=== PATIENT | female | born 1970 | race Caucasian/White ===

== ENCOUNTER 2018-10-16 10:54 | Day surgery (SDC) | payer MEDICARE, MEDICAID ==
[2018-10-15 15:55] VITALS: BMI 72.1
[~2018-10-16 10:54] MED LIST: Lidocaine 1% PF 5 ML VIAL ONE; PROPOFOL 200 MG/20 ML VIAL ONE
--- NOTE | 2018-10-16 13:52 | OP ---
DATE OF PROCEDURE: 10/16/2018 SURGEON: Felisa Gayle M.D. OPERATIVE PROCEDURE: Esophagogastroduodenoscopy. PREOPERATIVE DIAGNOSES: Iron deficient anemia with recent drop in blood count. There is no history of overt gastrointestinal bleeding. POSTOPERATIVE DIAGNOSES: 1. Normal esophagus and duodenum. 2. Antral gastritis. PROCEDURE IN DETAIL: The patient was placed on her left lateral position and the throat was anesthet ized with Cetacaine spray and the patient given sedation by Anesthesia Department. A [employer]ax video ga stroscope under direct vision was passed down the oropharynx, past the GE junction, into the stomach and subsequently descending duodenum. The esophageal mucosa appeared normal. The GE junction, no pa thology seen. Retroflexion failed to show any lesion in the fundus or cardia. The gastric body, no pathology seen. The gastric antrum shows edematous mucosa. The duodenal bulb and descending duodenu m, no pathology seen. The stomach was decompressed and scope was removed. RECOMMENDATIONS: 1. Iron supplement. 2. Follow up H&H. 3. No further workup necessary as she had a colonoscopy in 2017 that was completely normal.
== END 2018-10-16 17:00 | disposition home or self-care (01) ==
LOC: SDC 10:54
PROVIDERS: ATTEND Internal Medicine Gastroenterology
PROC: 0DJ08ZZ Inspection of Upper Intestinal Tract, Via Natural or Artificial Opening Endoscopic (ICD-10-PCS; principal; 2018-10-16)
DX: D50.9 Iron deficiency anemia, unspecified (principal); K29.70 Gastritis, unspecified, without bleeding; I48.2 Chronic atrial fibrillation; E11.9 Type 2 diabetes mellitus without complications; E03.9 Hypothyroidism, unspecified; G89.4 Chronic pain syndrome; D68.9 Coagulation defect, unspecified; F17.200 Nicotine dependence, unspecified, uncomplicated; E66.01 Morbid (severe) obesity due to excess calories; Z68.45 Body mass index [BMI] 70 or greater, adult; Z86.718 Personal history of other venous thrombosis and embolism; Z79.01 Long term (current) use of anticoagulants; Z79.899 Other long term (current) drug therapy
CPT/HCPCS: J2001; J2704

== ENCOUNTER 2020-03-12 13:10 | Emergency (ER) | payer MEDICARE, MEDICAID ==
[2020-03-12 14:04] LABS: #Basophils 0.1 thou/uL (0.0-0.2); #Eosinphils 0.2 thou/uL (0.0-0.7); #Lymphocytes 1.9 thou/uL (1.20-3.40); #Monocytes 0.7 thou/uL (0.11-0.59); #Neutrophils 5.3 thou/uL (1.40-6.50); %Basophils 0.7 % (0.0-1.0); %Eosinophils 2.5 % (0.0-10.0); %Lymphocytes 22.9 % (21.0-51.0); %Neutrophils 64.9 % (42.0-75.0); Hemoglobin 13.1 g/dL (12.0-16.0); Mean Corpuscular HGB CONC 31.1 g/dL (32.0-36.0); Mean Corpuscular Hemoglobin 24.9 pg (27.0-31.0); Mean Platelet Volume 10.2 fL (7.4-10.4); Platelet Count 229 thou/uL (130-400); RBC Distribution Width 15.3 % (11.5-14.5); Red Blood Cell (RBC) Count 5.27 mill/uL (4.20-5.40); White Blood Cell (WBC) Count 8.1 thou/uL (4.8-10.8)
[2020-03-12 14:19] LABS: ALT (SGPT) 34 U/L (8-55); AST (SGOT) 28 U/L (5-34); Albumin 3.8 g/dL (3.5-5.0); Alkaline Phosphatase 135 U/L (40-110); Anion Gap 11 mmol/L (10-20); BUN (Urea Nitrogen) 13 mg/dL (7.0-18.7); Bilirubin, Total 0.3 mg/dL (0.2-1.2); Calc. Creatinine Clearance 0 mL/min (70-130); Carbon Dioxide 27 mmol/L (22-29); Chloride 101 mmol/L (98-107); Estimated GFR-MDRD 65; Globulin 4.2 g/dL (2.4-3.5); Glucose 103 mg/dL (70-105); Potassium 4.2 mmol/L (3.5-5.1); Sodium 135 mmol/L (136-145)
--- NOTE | 2020-03-12 14:38 | RAD ---
RIGHT TIBIA AND FIBULA 2 VIEWS: Date: 03/12/2020 HISTORY: Redness and oozing from leg. COMPARISON: 12/31/2019. FINDINGS: Focal prominent soft tissue swelling noted primarily laterally at the proximal calf with what appears to be a fairly large anterolateral open wound. There was some focal soft tissue swelling in this reg ion at the time of the prior study, but no open wound was seen at that time. Postop changes of the an kle with ankle joint and subtalar joint fusion changes. No fracture, dislocation, or other significan t acute osseous process. IMPRESSION: Open wound anteriorly and laterally at the upper calf. Postoperative ankle and subtalar joint fusion changes. No acute fracture or dislocation. POS: [facility]
== END 2020-03-12 16:58 | disposition home or self-care (01) ==
LOC: ERS 13:10
DX: S81.801A Unspecified open wound, right lower leg, initial encounter (principal); I50.9 Heart failure, unspecified; F41.9 Anxiety disorder, unspecified; F32.9 Major depressive disorder, single episode, unspecified; Z87.891 Personal history of nicotine dependence; Z79.82 Long term (current) use of aspirin; Z79.899 Other long term (current) drug therapy
CPT/HCPCS: 36415; 80053; 85025; 85652; 86140; 99284

== ENCOUNTER 2023-07-14 22:30 | Inpatient (IN) | payer MEDICARE, MEDICAID ==
[2023-07-14] MEDS ORDERED: Guaifenesin DM 100-10/5 ML UDCUP PO PRN (23:51)
[2023-07-14] MEDS ORDERED: Ondansetron ODT 4 MG TAB PO PRN (23:51)
[2023-07-14] MEDS ORDERED: Ondansetron PF 4 MG/2 ML Vial IVP PRN (23:51)
[2023-07-14] MEDS ORDERED: Calcium Carbonate 500 MG ChewTAB PO PRN (23:51)
[2023-07-14] MEDS ORDERED: Acetaminophen 650 MG Suppository PR PRN (23:51)
[2023-07-14] MEDS ORDERED: Acetaminophen 325 MG TAB PO PRN (23:51)
[2023-07-15] MEDS ORDERED: cefTRIAXone\\ROCEPHIN 2 GM in Sodium Chloride 0.9% 100 ML IVPB SCH ×2 (01:00→09:00)
[2023-07-15 01:51] LABS: #Basophils 0.1 thou/uL (0.0-0.2); #Eosinphils 1.4 thou/uL (0.0-0.7); #Neutrophils 6.6 thou/uL (1.40-6.50); %Eosinophils 12.7 % (0.0-10.0); %Lymphocytes 18.8 % (21.0-51.0); %Monocytes 9.1 % (0.0-10.0); Hematocrit 42.9 % (36.0-47.0); Hemoglobin 13.1 g/dL (12.0-16.0); Mean Corpuscular HGB CONC 30.5 g/dL (32.0-36.0); Mean Corpuscular Hemoglobin 27.6 pg (27.0-31.0); Mean Corpuscular Volume 90.3 fl (78.0-98.0); Platelet Count 242 10x3/uL (130-400); RBC Distribution Width 14.2 % (11.5-14.5); Red Blood Cell (RBC) Count 4.75 mill/uL (4.20-5.40); White Blood Cell (WBC) Count 11.4 10x3/uL (4.8-10.8)
[2023-07-15] MEDS ORDERED: guaiFENesin ER 600 MG TAB PO PRN (02:37)
[2023-07-15] MEDS ORDERED: Nystatin Powder 15 GM BOT TOP PRN (02:37)
[2023-07-15] MEDS ORDERED: MENTHOL TOP PRN (02:37)
[2023-07-15] MEDS ORDERED: DEXTROMETHORPHAN PO PRN (02:37)
[2023-07-15] MEDS ORDERED: Polyethylene Glycol 3350 17 GM Packet PO PRN (02:37)
[2023-07-15] MEDS ORDERED: Milk Of Magnesia 30 ML UDCUP PO PRN ×2 (02:37)
[2023-07-15] MEDS ORDERED: Docusate 100 MG CAP PO PRN (02:37)
[2023-07-15] MEDS ORDERED: GUAIFENESIN PO PRN (02:37)
[2023-07-15] MEDS ORDERED: Phenol 118 ML BOT PO PRN (02:37)
[2023-07-15] MEDS ORDERED: [UNRECOGNIZED DRUG - OTHER] PO PRN (02:37)
[2023-07-15] MEDS ORDERED: Promethazine 25 MG TAB PO PRN (02:37)
[2023-07-15] MEDS ORDERED: Witch Hazel-Glycerin 1 EACH JAR TOP PRN (03:03)
[2023-07-15] MEDS ORDERED: diphenhydrAMINE 50 MG CAP PO PRN (03:08)
[2023-07-15] MEDS ORDERED: Ibuprofen 600 MG TAB PO PRN (03:14)
[2023-07-15 03:31] VITALS: BMI 67.6
[2023-07-15] MEDS: Levothyroxine Sodium 50 MCG TAB PO SCH (06:57)
[2023-07-15] MEDS: Acetaminophen 500 MG TAB PO PRN ×2 (06:57→17:01)
[2023-07-15 07:18] LABS: Anion Gap 14 mmol/L (10-20); BUN (Urea Nitrogen) 12 mg/dL (9.8-20.1); Calc. Creatinine Clearance 263 mL/min (70-130); Carbon Dioxide 22 mmol/L (22-29); Chloride 103 mmol/L (98-107); Estimated GFR 80; Glucose 95 mg/dL (70-105); Potassium 3.7 mmol/L (3.5-5.1); Sodium 135 mmol/L (136-145)
[2023-07-15] MEDS: Potassium Chloride 8 MEQ TAB PO SCH ×2 (09:05→19:52)
[2023-07-15] MEDS: Aripiprazole 15 MG TAB PO SCH (09:05)
[2023-07-15] MEDS: Ferrous Sulfate 325 MG TAB PO SCH (09:05)
[2023-07-15] MEDS: Furosemide 20 MG TAB PO SCH (09:06)
[2023-07-15] MEDS: Topiramate 25 MG TAB PO SCH ×2 (09:06→19:52)
[2023-07-15] MEDS: FLUoxetine HCl 20 MG CAP PO SCH (09:06)
[2023-07-15] MEDS: Bupropion 100 MG SR TAB PO SCH (09:06)
[2023-07-15] MEDS: Aspirin 81 mg Enteric Coated Tablet PO SCH (09:07)
[2023-07-15] MEDS: clonazePAM 0.5 MG TAB PO SCH ×2 (09:07→19:52)
[2023-07-15] MEDS: Pioglitazone HCl 15 MG TAB PO SCH (09:07)
[2023-07-15] MEDS: Multivit, Therapeutic 1 TAB PO SCH (09:07)
[2023-07-15] MEDS ORDERED: Vancomycin HCl 2.5 GM in Sodium Chloride 0.9% 500 ML IVPB SCH (10:45)
[2023-07-15] MEDS: Ampicillin/Sulbactam 3 GM in Sodium Chloride 0.9% 100 ML IVPB SCH ×2 (11:26→17:01)
[2023-07-15] MEDS ORDERED: Clindamycin/D5W 600 MG in Premix Bag 1 BAG IVPB SCH (14:00)
[2023-07-15] MEDS: Melatonin 3 MG TAB PO SCH (19:52)
[2023-07-15] MEDS: VANCOMYCIN 1.25 GM/250 ML BAG 1.25 GM in Premix Bag 1 BAG IVPB SCH (19:53)
[2023-07-15] MEDS: Ibuprofen 600 MG TAB PO PRN (20:03)
[2023-07-16] MEDS: Ampicillin/Sulbactam 3 GM in Sodium Chloride 0.9% 100 ML IVPB SCH ×4 (00:41→17:53)
[2023-07-16] MEDS: Acetaminophen 500 MG TAB PO PRN ×2 (05:20→12:48)
[2023-07-16] MEDS: Levothyroxine Sodium 50 MCG TAB PO SCH (05:20)
[2023-07-16] MEDS: Ibuprofen 600 MG TAB PO PRN ×2 (05:21→12:48)
[2023-07-16] MEDS: VANCOMYCIN 1.25 GM/250 ML BAG 1.25 GM in Premix Bag 1 BAG IVPB SCH ×2 (05:21→15:24)
[2023-07-16] MEDS: Bupropion 100 MG SR TAB PO SCH (08:38)
[2023-07-16] MEDS: Multivit, Therapeutic 1 TAB PO SCH (08:39)
[2023-07-16] MEDS: Aripiprazole 15 MG TAB PO SCH (08:39)
[2023-07-16] MEDS: Pioglitazone HCl 15 MG TAB PO SCH (08:39)
[2023-07-16] MEDS: Ferrous Sulfate 325 MG TAB PO SCH (08:39)
[2023-07-16] MEDS: FLUoxetine HCl 20 MG CAP PO SCH (08:39)
[2023-07-16] MEDS: clonazePAM 0.5 MG TAB PO SCH ×2 (08:39→21:01)
[2023-07-16] MEDS: Aspirin 81 mg Enteric Coated Tablet PO SCH (08:39)
[2023-07-16] MEDS: Furosemide 20 MG TAB PO SCH (08:39)
[2023-07-16] MEDS: Potassium Chloride 8 MEQ TAB PO SCH ×2 (08:39→21:01)
[2023-07-16] MEDS: Topiramate 25 MG TAB PO SCH ×2 (08:39→21:01)
[2023-07-16 08:51] LABS: #Basophils 0.1 thou/uL (0.0-0.2); #Eosinphils 1.4 thou/uL (0.0-0.7); #Monocytes 0.7 thou/uL (0.11-0.59); #Neutrophils 3.7 thou/uL (1.40-6.50); %Basophils 0.8 % (0.0-1.0); %Eosinophils 18.6 % (0.0-10.0); %Lymphocytes 21.9 % (21.0-51.0); %Monocytes 9.5 % (0.0-10.0); %Neutrophils 48.8 % (42.0-75.0); Hematocrit 44.5 % (36.0-47.0); Hemoglobin 12.8 g/dL (12.0-16.0); Mean Corpuscular HGB CONC 28.8 g/dL (32.0-36.0); Mean Corpuscular Hemoglobin 27.6 pg (27.0-31.0); Mean Corpuscular Volume 95.9 fl (78.0-98.0); Mean Platelet Volume 10.9 fL (7.4-10.4); Platelet Count 234 10x3/uL (130-400); RBC Distribution Width 14.6 % (11.5-14.5); Red Blood Cell (RBC) Count 4.64 mill/uL (4.20-5.40); White Blood Cell (WBC) Count 7.6 10x3/uL (4.8-10.8)
[2023-07-16 14:10] LABS: Vancomycin, Trough 24.2 ug/mL
[2023-07-16] MEDS: Melatonin 3 MG TAB PO SCH (21:00)
[2023-07-16] MEDS: Vancomycin 1 GM in Premix Bag 1 BAG IVPB SCH (21:01)
[2023-07-17] MEDS: Ampicillin/Sulbactam 3 GM in Sodium Chloride 0.9% 100 ML IVPB SCH ×4 (00:38→20:34)
[2023-07-17] MEDS ORDERED: Loperamide HCl 2 MG CAP PO SCH (03:32)
[2023-07-17] MEDS: Levothyroxine Sodium 50 MCG TAB PO SCH (05:02)
[2023-07-17] MEDS: Ibuprofen 600 MG TAB PO PRN ×2 (05:03→21:44)
[2023-07-17 06:12] LABS: #Basophils 0.1 thou/uL (0.0-0.2); #Eosinphils 1.8 thou/uL (0.0-0.7); #Monocytes 0.9 thou/uL (0.11-0.59); #Neutrophils 4.5 thou/uL (1.40-6.50); %Eosinophils 19.2 % (0.0-10.0); %Lymphocytes 22.6 % (21.0-51.0); %Monocytes 9.1 % (0.0-10.0); %Neutrophils 47.8 % (42.0-75.0); Hematocrit 44.9 % (36.0-47.0); Hemoglobin 13.2 g/dL (12.0-16.0); Mean Corpuscular HGB CONC 29.4 g/dL (32.0-36.0); Mean Corpuscular Hemoglobin 27.9 pg (27.0-31.0); Mean Corpuscular Volume 94.9 fl (78.0-98.0); Mean Platelet Volume 11.2 fL (7.4-10.4); Platelet Count 249 10x3/uL (130-400); RBC Distribution Width 14.4 % (11.5-14.5); Red Blood Cell (RBC) Count 4.73 mill/uL (4.20-5.40); White Blood Cell (WBC) Count 9.4 10x3/uL (4.8-10.8)
[2023-07-17] MEDS: Vancomycin 1 GM in Premix Bag 1 BAG IVPB SCH ×3 (06:14→18:32)
[2023-07-17] MEDS: Bupropion 100 MG SR TAB PO SCH (08:34)
[2023-07-17] MEDS: Pioglitazone HCl 15 MG TAB PO SCH (08:34)
[2023-07-17] MEDS: Aripiprazole 15 MG TAB PO SCH (08:34)
[2023-07-17] MEDS: Potassium Chloride 8 MEQ TAB PO SCH ×2 (08:35→21:36)
[2023-07-17] MEDS: clonazePAM 0.5 MG TAB PO SCH ×2 (08:35→21:36)
[2023-07-17] MEDS: Topiramate 25 MG TAB PO SCH ×2 (08:35→21:37)
[2023-07-17] MEDS: FLUoxetine HCl 20 MG CAP PO SCH (08:35)
[2023-07-17] MEDS: Aspirin 81 mg Enteric Coated Tablet PO SCH (08:36)
[2023-07-17] MEDS: Multivit, Therapeutic 1 TAB PO SCH (08:36)
[2023-07-17] MEDS: Ferrous Sulfate 325 MG TAB PO SCH (08:36)
[2023-07-17] MEDS: Furosemide 20 MG TAB PO SCH (08:37)
[2023-07-17 14:50] LABS: Vancomycin, Trough 18.6 ug/mL
[2023-07-17] MEDS: cefTRIAXone\\ROCEPHIN 2 GM in Sodium Chloride 0.9% 100 ML IVPB SCH (21:31)
[2023-07-17] MEDS: metroNIDAZOLE 500 MG TAB PO SCH (21:36)
[2023-07-17] MEDS: Melatonin 3 MG TAB PO SCH (21:36)
[2023-07-18] MEDS: Vancomycin 1 GM in Premix Bag 1 BAG IVPB SCH ×2 (00:41→08:48)
[2023-07-18] MEDS: Levothyroxine Sodium 50 MCG TAB PO SCH (05:45)
[2023-07-18 07:05] LABS: Hematocrit 43.3 % (36.0-47.0); Hemoglobin 12.7 g/dL (12.0-16.0); Manual Diff?? YES; Mean Corpuscular HGB CONC 29.3 g/dL (32.0-36.0); Mean Corpuscular Hemoglobin 27.5 pg (27.0-31.0); Mean Corpuscular Volume 93.9 fl (78.0-98.0); Platelet Count 255 10x3/uL (130-400); RBC Distribution Width 14.6 % (11.5-14.5); Red Blood Cell (RBC) Count 4.61 mill/uL (4.20-5.40); White Blood Cell (WBC) Count 6.7 10x3/uL (4.8-10.8)
[2023-07-18 07:07] LABS: Delete Auto Diff?? YES
[2023-07-18 07:56] LABS: Band 3 % (5-11); CellaVision Operator ID LAB.GE; Eosinophils 24 % (0-10); Lymphocytes 30 % (21-51); Monocytes 5 % (0-10); Neutrophil 35 % (42-75); Platelet Adequacy Comment Platelets Normal; Polychromasia SLIGHT = 2-3 cells HPF (0-2); Reactive Lymphocytes 2 % (0-10); Total Cell Count 102
[2023-07-18] MEDS: Bupropion 100 MG SR TAB PO SCH (08:47)
[2023-07-18] MEDS: clonazePAM 0.5 MG TAB PO SCH ×2 (08:47→20:33)
[2023-07-18] MEDS: Potassium Chloride 8 MEQ TAB PO SCH ×2 (08:47→20:47)
[2023-07-18] MEDS: Topiramate 25 MG TAB PO SCH ×2 (08:47→20:33)
[2023-07-18] MEDS: Furosemide 20 MG TAB PO SCH (08:48)
[2023-07-18] MEDS: Ferrous Sulfate 325 MG TAB PO SCH (08:48)
[2023-07-18] MEDS: FLUoxetine HCl 20 MG CAP PO SCH (08:48)
[2023-07-18] MEDS: Pioglitazone HCl 15 MG TAB PO SCH (08:48)
[2023-07-18] MEDS: Multivit, Therapeutic 1 TAB PO SCH (08:48)
[2023-07-18] MEDS: Aripiprazole 15 MG TAB PO SCH (08:48)
[2023-07-18] MEDS: Aspirin 81 mg Enteric Coated Tablet PO SCH (08:48)
[2023-07-18] MEDS: metroNIDAZOLE 500 MG TAB PO SCH ×3 (08:48→20:33)
[2023-07-18] MEDS: Ibuprofen 600 MG TAB PO PRN ×2 (12:58→22:08)
[2023-07-18] MEDS ORDERED: Vancomycin 1 GM in Premix Bag 1 BAG IVPB SCH (16:00)
[2023-07-18] MEDS: Melatonin 3 MG TAB PO SCH (20:32)
[2023-07-18] MEDS: cefTRIAXone\\ROCEPHIN 2 GM in Sodium Chloride 0.9% 100 ML IVPB SCH (21:45)
[2023-07-19] MEDS: Levothyroxine Sodium 50 MCG TAB PO SCH (05:54)
[2023-07-19] MEDS: Ferrous Sulfate 325 MG TAB PO SCH (08:01)
[2023-07-19] MEDS: Aripiprazole 15 MG TAB PO SCH (08:01)
[2023-07-19] MEDS: Pioglitazone HCl 15 MG TAB PO SCH (08:01)
[2023-07-19] MEDS: Furosemide 20 MG TAB PO SCH (08:01)
[2023-07-19] MEDS: clonazePAM 0.5 MG TAB PO SCH (08:01)
[2023-07-19] MEDS: Topiramate 25 MG TAB PO SCH (08:01)
[2023-07-19] MEDS: metroNIDAZOLE 500 MG TAB PO SCH ×2 (08:01→14:01)
[2023-07-19] MEDS: Multivit, Therapeutic 1 TAB PO SCH (08:01)
[2023-07-19] MEDS: Aspirin 81 mg Enteric Coated Tablet PO SCH (08:01)
[2023-07-19] MEDS: FLUoxetine HCl 20 MG CAP PO SCH (08:01)
[2023-07-19] MEDS: Potassium Chloride 8 MEQ TAB PO SCH (08:02)
[2023-07-19] MEDS: Bupropion 100 MG SR TAB PO SCH (08:02)
[2023-07-19] MEDS ORDERED: Cefdinir 300 MG CAP PO SCH (10:00)
[2023-07-19 14:13] VITALS: BP 115/72; TEMP 98.2
[2023-07-19] MEDS: Ibuprofen 600 MG TAB PO PRN (15:40)
== END 2023-07-19 16:08 | DRG 394 ==
LOC: SURG B 23:27
PROVIDERS: ADMIT Family Medicine; ATTEND Family Medicine
DX: K62.6 Ulcer of anus and rectum (principal); R78.81 Bacteremia; A63.0 Anogenital (venereal) warts; I11.0 Hypertensive heart disease with heart failure; I50.9 Heart failure, unspecified; E03.9 Hypothyroidism, unspecified; F41.9 Anxiety disorder, unspecified; Z66 Do not resuscitate; F32.A Depression, unspecified; Z90.49 Acquired absence of other specified parts of digestive tract; Z83.3 Family history of diabetes mellitus; Z79.899 Other long term (current) drug therapy; Z79.82 Long term (current) use of aspirin; Z87.891 Personal history of nicotine dependence; D64.9 Anemia, unspecified; Z74.01 Bed confinement status
CPT/HCPCS: 36415; 80048; 80053; 80202; 81001; 82565; 83605; 85025; 85652; 86140; 87040; 87077; 87149; 97139; J0295; J0696; J1650; J2270; J3370; J3370-JW; J3490; J7030; Q0162

== ENCOUNTER 2023-07-22 23:35 | Inpatient (IN) | payer MEDICARE, MEDICAID ==
[2023-07-23 00:42] LABS: #Basophils 0.1 thou/uL (0.0-0.2); #Eosinphils 2.4 thou/uL (0.0-0.7); #Monocytes 0.8 thou/uL (0.11-0.59); #Neutrophils 3.9 thou/uL (1.40-6.50); %Basophils 1.1 % (0.0-1.0); %Eosinophils 24.2 % (0.0-10.0); %Lymphocytes 26.5 % (21.0-51.0); %Monocytes 7.9 % (0.0-10.0); Hematocrit 45.2 % (36.0-47.0); Hemoglobin 13.3 g/dL (12.0-16.0); Mean Corpuscular HGB CONC 29.4 g/dL (32.0-36.0); Mean Corpuscular Hemoglobin 27.7 pg (27.0-31.0); Mean Corpuscular Volume 94.2 fl (78.0-98.0); Mean Platelet Volume 11.1 fL (7.4-10.4); Platelet Count 212 10x3/uL (130-400); RBC Distribution Width 15.3 % (11.5-14.5); White Blood Cell (WBC) Count 9.9 10x3/uL (4.8-10.8)
[2023-07-23 00:55] LABS: INR-International Normal Ratio 1.2; Prothrombin Time 15.6 sec (12.0-14.7)
[2023-07-23 01:07] LABS: ALT (SGPT) 13 U/L (8-55); AST (SGOT) 22 U/L (5-34); Albumin 3.1 g/dL (3.5-5.0); Alkaline Phosphatase 78 U/L (40-110); Anion Gap 10 mmol/L (10-20); BUN (Urea Nitrogen) 10 mg/dL (9.8-20.1); Bilirubin, Total 0.2 mg/dL (0.2-1.2); Calc. Creatinine Clearance 0 mL/min (70-130); Calcium 9.3 mg/dL (7.8-10.44); Carbon Dioxide 26 mmol/L (22-29); Chloride 104 mmol/L (98-107); Estimated GFR 84; Glucose 81 mg/dL (70-105); Potassium 3.8 mmol/L (3.5-5.1); Protein, Total 8.1 g/dL (6.0-8.3); Sodium 136 mmol/L (136-145)
[2023-07-23] MEDS ORDERED: Milk Of Magnesia 30 ML UDCUP PO PRN (03:32)
[2023-07-23] MEDS ORDERED: GUAIFENESIN PO PRN (03:32)
[2023-07-23] MEDS ORDERED: Promethazine 25 MG TAB PO PRN (03:32)
[2023-07-23] MEDS ORDERED: Nystatin Powder 15 GM BOT TOP PRN (03:32)
[2023-07-23] MEDS ORDERED: Witch Hazel-Glycerin 1 EACH JAR TOP PRN (03:32)
[2023-07-23] MEDS ORDERED: Phenol 177 ML BOT PO PRN (03:32)
[2023-07-23] MEDS ORDERED: Docusate 100 MG CAP PO PRN (03:32)
[2023-07-23] MEDS ORDERED: guaiFENesin ER 600 MG TAB PO PRN (03:32)
[2023-07-23] MEDS ORDERED: Acetaminophen 500 MG TAB PO PRN (03:32)
[2023-07-23] MEDS ORDERED: IBUPROFEN 200 MG PO PRN (03:32)
[2023-07-23] MEDS ORDERED: DEXTROMETHORPHAN PO PRN (03:32)
[2023-07-23] MEDS ORDERED: [UNRECOGNIZED DRUG - OTHER] PO PRN (03:32)
[2023-07-23] MEDS ORDERED: Polyethylene Glycol 3350 17 GM Packet PO PRN (03:32)
[2023-07-23] MEDS ORDERED: diphenhydrAMINE 50 MG CAP PO PRN (03:32)
[2023-07-23] MEDS ORDERED: Methyl Salicylate/Menthol 85 GM TUBE TOP PRN (03:32)
[2023-07-23 03:36] VITALS: BMI 66.6
[2023-07-23] MEDS ORDERED: Ondansetron PF 4 MG/2 ML Vial IVP PRN (03:38)
[2023-07-23] MEDS ORDERED: Acetaminophen 650 MG Suppository PR PRN (03:38)
[2023-07-23] MEDS ORDERED: Ondansetron ODT 4 MG TAB PO PRN (03:38)
[2023-07-23] MEDS ORDERED: Calcium Carbonate 500 MG ChewTAB PO PRN (03:38)
[2023-07-23] MEDS ORDERED: Guaifenesin DM 100-10/5 ML UDCUP PO PRN (03:38)
[2023-07-23] MEDS ORDERED: hydrALAZINE 20 MG/ML VIAL SLOW IVP PRN (04:39)
[2023-07-23] MEDS: Ibuprofen 600 MG TAB PO PRN (05:09)
[2023-07-23] MEDS: Levothyroxine Sodium 50 MCG TAB PO SCH (05:09)
[2023-07-23] MEDS: Acetaminophen 325 MG TAB PO PRN ×3 (05:10→21:14)
[2023-07-23 05:18] LABS: Lactic Acid 0.9 mmol/L (0.5-2.2)
[2023-07-23 06:41] LABS: Hemoglobin A1c 5.2 % (4.0-6.0)
[2023-07-23] MEDS ORDERED: Cefdinir 300 MG CAP PO SCH (09:00)
[2023-07-23] MEDS: Multivit, Therapeutic 1 TAB PO SCH (09:41)
[2023-07-23] MEDS: metroNIDAZOLE 500 MG TAB PO SCH ×3 (09:41→21:14)
[2023-07-23] MEDS: FLUoxetine HCl 20 MG CAP PO SCH (09:41)
[2023-07-23] MEDS: Aspirin 81 mg Enteric Coated Tablet PO SCH (09:41)
[2023-07-23] MEDS: Furosemide 20 MG TAB PO SCH (09:41)
[2023-07-23] MEDS: Topiramate 25 MG TAB PO SCH ×2 (09:41→21:14)
[2023-07-23] MEDS: clonazePAM 0.5 MG TAB PO SCH ×3 (09:41→21:15)
[2023-07-23] MEDS: Cefdinir 300 MG CAP PO SCH ×2 (09:42→21:14)
[2023-07-23] MEDS: Aripiprazole 15 MG TAB PO SCH (09:43)
[2023-07-23] MEDS: Pioglitazone HCl 15 MG TAB PO SCH (09:43)
[2023-07-23] MEDS: Potassium Chloride 8 MEQ TAB PO SCH ×2 (09:43→17:07)
[2023-07-23] MEDS: BuPROPion 100 MG SR.TAB PO SCH (09:43)
[2023-07-23] MEDS: Divalproex Sodium 250 MG ER.TAB PO SCH (09:58)
[2023-07-23] MEDS ORDERED: Acetaminophen/Codeine 30-300mg Tablet PO SCH (13:15)
[2023-07-23] MEDS: Melatonin 3 MG TAB PO SCH (21:14)
[2023-07-24] MEDS: Levothyroxine Sodium 50 MCG TAB PO SCH (05:07)
[2023-07-24 09:06] LABS: #Basophils 0.1 thou/uL (0.0-0.2); #Eosinphils 2.5 thou/uL (0.0-0.7); #Monocytes 0.7 thou/uL (0.11-0.59); #Neutrophils 8.1 thou/uL (1.40-6.50); %Basophils 0.7 % (0.0-1.0); %Eosinophils 18.6 % (0.0-10.0); %Lymphocytes 13.9 % (21.0-51.0); %Monocytes 5.5 % (0.0-10.0); %Neutrophils 60.9 % (42.0-75.0); Hematocrit 43.7 % (36.0-47.0); Hemoglobin 12.9 g/dL (12.0-16.0); Mean Corpuscular HGB CONC 29.5 g/dL (32.0-36.0); Mean Corpuscular Hemoglobin 27.7 pg (27.0-31.0); Mean Platelet Volume 11.7 fL (7.4-10.4); Platelet Count 227 10x3/uL (130-400); RBC Distribution Width 15.8 % (11.5-14.5); Red Blood Cell (RBC) Count 4.65 mill/uL (4.20-5.40); White Blood Cell (WBC) Count 13.4 10x3/uL (4.8-10.8)
[2023-07-24] MEDS: FLUoxetine HCl 20 MG CAP PO SCH (09:24)
[2023-07-24] MEDS: metroNIDAZOLE 500 MG TAB PO SCH ×3 (09:24→21:44)
[2023-07-24] MEDS: Multivit, Therapeutic 1 TAB PO SCH (09:24)
[2023-07-24] MEDS: Divalproex Sodium 250 MG ER.TAB PO SCH (09:24)
[2023-07-24] MEDS: Topiramate 25 MG TAB PO SCH ×2 (09:24→21:43)
[2023-07-24] MEDS: Potassium Chloride 8 MEQ TAB PO SCH ×2 (09:24→16:33)
[2023-07-24] MEDS: Cefdinir 300 MG CAP PO SCH ×2 (09:24→21:42)
[2023-07-24] MEDS: Pioglitazone HCl 15 MG TAB PO SCH (09:24)
[2023-07-24] MEDS: Furosemide 20 MG TAB PO SCH (09:24)
[2023-07-24] MEDS: Aripiprazole 15 MG TAB PO SCH (09:24)
[2023-07-24 09:25] LABS: Anion Gap 9 mmol/L (10-20); BUN (Urea Nitrogen) 11 mg/dL (9.8-20.1); Calc. Creatinine Clearance 245 mL/min (70-130); Calcium 9.3 mg/dL (7.8-10.44); Carbon Dioxide 29 mmol/L (22-29); Chloride 104 mmol/L (98-107); Estimated GFR 74; Glucose 88 mg/dL (70-105); Potassium 3.9 mmol/L (3.5-5.1); Sodium 138 mmol/L (136-145)
[2023-07-24] MEDS: Ibuprofen 600 MG TAB PO PRN (09:25)
[2023-07-24] MEDS: Aspirin 81 mg Enteric Coated Tablet PO SCH (09:25)
[2023-07-24] MEDS: BuPROPion 100 MG SR.TAB PO SCH (09:25)
[2023-07-24] MEDS: clonazePAM 0.5 MG TAB PO SCH ×3 (09:25→21:44)
[2023-07-24] MEDS ORDERED: Ketorolac Tromethamine 30 MG/ML VIAL IM SCH (17:30)
[2023-07-24] MEDS: Acetaminophen 325 MG TAB PO PRN (21:42)
[2023-07-24] MEDS: Melatonin 3 MG TAB PO SCH (21:43)
[2023-07-25] MEDS: Levothyroxine Sodium 50 MCG TAB PO SCH (06:00)
[2023-07-25] MEDS: clonazePAM 0.5 MG TAB PO SCH ×3 (09:27→21:08)
[2023-07-25] MEDS: FLUoxetine HCl 20 MG CAP PO SCH (09:27)
[2023-07-25] MEDS: Divalproex Sodium 250 MG ER.TAB PO SCH (09:27)
[2023-07-25] MEDS: Topiramate 25 MG TAB PO SCH ×2 (09:28→21:09)
[2023-07-25] MEDS: Furosemide 20 MG TAB PO SCH (09:28)
[2023-07-25] MEDS: BuPROPion 100 MG SR.TAB PO SCH (09:28)
[2023-07-25] MEDS: Multivit, Therapeutic 1 TAB PO SCH (09:28)
[2023-07-25] MEDS: Aripiprazole 15 MG TAB PO SCH (09:28)
[2023-07-25] MEDS: metroNIDAZOLE 500 MG TAB PO SCH ×3 (09:28→21:08)
[2023-07-25] MEDS: Cefdinir 300 MG CAP PO SCH ×2 (09:28→21:08)
[2023-07-25] MEDS: Potassium Chloride 8 MEQ TAB PO SCH ×2 (09:28→17:13)
[2023-07-25] MEDS: Pioglitazone HCl 15 MG TAB PO SCH (09:28)
[2023-07-25] MEDS: Aspirin 81 mg Enteric Coated Tablet PO SCH (09:29)
[2023-07-25 09:31] LABS: #Basophils 0.1 thou/uL (0.0-0.2); #Eosinphils 2.5 thou/uL (0.0-0.7); #Monocytes 0.7 thou/uL (0.11-0.59); #Neutrophils 8.3 thou/uL (1.40-6.50); %Eosinophils 18.6 % (0.0-10.0); %Lymphocytes 13.7 % (21.0-51.0); %Monocytes 5.2 % (0.0-10.0); %Neutrophils 61.2 % (42.0-75.0); Hematocrit 44.2 % (36.0-47.0); Mean Corpuscular HGB CONC 29.4 g/dL (32.0-36.0); Mean Corpuscular Hemoglobin 27.8 pg (27.0-31.0); Mean Corpuscular Volume 94.4 fl (78.0-98.0); Mean Platelet Volume 11.3 fL (7.4-10.4); Platelet Count 204 10x3/uL (130-400); RBC Distribution Width 15.8 % (11.5-14.5); Red Blood Cell (RBC) Count 4.68 mill/uL (4.20-5.40); White Blood Cell (WBC) Count 13.6 10x3/uL (4.8-10.8)
[2023-07-25] MEDS: Ibuprofen 600 MG TAB PO SCH ×3 (09:32→21:58)
[2023-07-25 09:55] LABS: ALT (SGPT) 8 U/L (8-55); AST (SGOT) 17 U/L (5-34); Alkaline Phosphatase 79 U/L (40-110); Anion Gap 9 mmol/L (10-20); BUN (Urea Nitrogen) 14 mg/dL (9.8-20.1); Bilirubin, Total 0.2 mg/dL (0.2-1.2); Calc. Creatinine Clearance 248 mL/min (70-130); Calcium 8.8 mg/dL (7.8-10.44); Carbon Dioxide 29 mmol/L (22-29); Chloride 104 mmol/L (98-107); Estimated GFR 75; Globulin 4.9 g/dL (2.4-3.5); Glucose 108 mg/dL (70-105); Potassium 3.9 mmol/L (3.5-5.1); Protein, Total 7.9 g/dL (6.0-8.3); Sodium 138 mmol/L (136-145)
[2023-07-25] MEDS ORDERED: Acetaminophen/Codeine 30-300mg Tablet PO SCH (11:15)
[2023-07-25] MEDS: Acetaminophen 325 MG TAB PO SCH ×2 (12:33→18:19)
[2023-07-25 18:38] LABS: Bacteria/HPF None Seen HPF (None Seen); Bilirubin Negative (Negative); Blood, Urine 3+ (Negative); CAUTI Indications for Culture Acute Hematuria; Clarity Extra Turbid (Clear); Glucose, Urine (Dipstick) Normal (Negative); Ketone, Urine Negative (Negative); Leukocyte 250 Leu/uL (Negative); Nitrite Negative (Negative); Protein, Urine (Dipstick) 70 mg/dL (Neg-Trace); RBC/HPF Greater than 50 HPF (0-3); Specific Gravity, Urine 1.021 (1.002-1.036); Squamous Epithelial 0-3 HPF (0-3); Urobilinogen Normal mg/dL (Less than 2); pH, Urine 5.5 (5.0-9.0)
[2023-07-25 18:41] LABS: Urine Culture Reflex Yes Yes
[2023-07-25] MEDS: Melatonin 3 MG TAB PO SCH (21:08)
[2023-07-26] MEDS: Acetaminophen 325 MG TAB PO SCH ×3 (00:38→14:58)
[2023-07-26] MEDS: Ibuprofen 600 MG TAB PO SCH ×2 (05:09→09:10)
[2023-07-26] MEDS: Levothyroxine Sodium 50 MCG TAB PO SCH (05:12)
[2023-07-26] MEDS: Aspirin 81 mg Enteric Coated Tablet PO SCH (09:09)
[2023-07-26] MEDS: Potassium Chloride 8 MEQ TAB PO SCH (09:09)
[2023-07-26] MEDS: Multivit, Therapeutic 1 TAB PO SCH (09:09)
[2023-07-26] MEDS: FLUoxetine HCl 20 MG CAP PO SCH (09:09)
[2023-07-26] MEDS: Topiramate 25 MG TAB PO SCH (09:09)
[2023-07-26] MEDS: Cefdinir 300 MG CAP PO SCH (09:09)
[2023-07-26] MEDS: clonazePAM 0.5 MG TAB PO SCH ×2 (09:09→14:58)
[2023-07-26 09:10] LABS: #Basophils 0.1 thou/uL (0.0-0.2); #Eosinphils 2.9 thou/uL (0.0-0.7); #Monocytes 1.5 thou/uL (0.11-0.59); #Neutrophils 14.6 thou/uL (1.40-6.50); %Basophils 0.6 % (0.0-1.0); %Eosinophils 13.6 % (0.0-10.0); %Monocytes 6.9 % (0.0-10.0); %Neutrophils 68.6 % (42.0-75.0); Hematocrit 43.8 % (36.0-47.0); Mean Corpuscular HGB CONC 29.7 g/dL (32.0-36.0); Mean Corpuscular Hemoglobin 27.4 pg (27.0-31.0); Mean Corpuscular Volume 92.2 fl (78.0-98.0); Mean Platelet Volume 11.4 fL (7.4-10.4); Platelet Count 183 10x3/uL (130-400); RBC Distribution Width 15.8 % (11.5-14.5); Red Blood Cell (RBC) Count 4.75 mill/uL (4.20-5.40); White Blood Cell (WBC) Count 21.3 10x3/uL (4.8-10.8)
[2023-07-26] MEDS: metroNIDAZOLE 500 MG TAB PO SCH ×2 (09:10→14:58)
[2023-07-26] MEDS: BuPROPion 100 MG SR.TAB PO SCH (09:11)
[2023-07-26] MEDS: Pioglitazone HCl 15 MG TAB PO SCH (09:11)
[2023-07-26] MEDS: Aripiprazole 15 MG TAB PO SCH (09:11)
[2023-07-26] MEDS: Furosemide 20 MG TAB PO SCH (09:11)
[2023-07-26] MEDS: Divalproex Sodium 250 MG ER.TAB PO SCH (09:11)
[2023-07-26 09:37] LABS: ALT (SGPT) 8 U/L (8-55); AST (SGOT) 15 U/L (5-34); Albumin 2.8 g/dL (3.5-5.0); Alkaline Phosphatase 78 U/L (40-110); Anion Gap 11 mmol/L (10-20); BUN (Urea Nitrogen) 14 mg/dL (9.8-20.1); Bilirubin, Total 0.2 mg/dL (0.2-1.2); Calc. Creatinine Clearance 271 mL/min (70-130); Calcium 8.8 mg/dL (7.8-10.44); Carbon Dioxide 24 mmol/L (22-29); Chloride 108 mmol/L (98-107); Estimated GFR 84; Globulin 4.8 g/dL (2.4-3.5); Glucose 96 mg/dL (70-105); Potassium 3.7 mmol/L (3.5-5.1); Protein, Total 7.6 g/dL (6.0-8.3); Sodium 139 mmol/L (136-145)
[2023-07-26 16:06] VITALS: BP 123/74; TEMP 97.9
== END 2023-07-26 16:59 | DRG 593 ==
LOC: ERS 23:35 → T4-B 07-23 01:55 → OBSVTOIN 07-23 04:10
PROVIDERS: ADMIT Family Medicine; ATTEND Family Medicine
PROC: 0T9B70Z Drainage of Bladder with Drainage Device, Via Natural or Artificial Opening (ICD-10-PCS; principal; 2023-07-23)
DX: L89.154 Pressure ulcer of sacral region, stage 4 (principal); B37.49 Other urogenital candidiasis; Z68.44 Body mass index [BMI] 60.0-69.9, adult; I11.0 Hypertensive heart disease with heart failure; E66.01 Morbid (severe) obesity due to excess calories; I50.9 Heart failure, unspecified; R82.998 Other abnormal findings in urine; K59.00 Constipation, unspecified; Z66 Do not resuscitate; F12.10 Cannabis abuse, uncomplicated; F32.A Depression, unspecified; F41.9 Anxiety disorder, unspecified; Z79.890 Hormone replacement therapy; Z79.899 Other long term (current) drug therapy; Z79.82 Long term (current) use of aspirin; Z90.49 Acquired absence of other specified parts of digestive tract; Z90.89 Acquired absence of other organs; Z98.1 Arthrodesis status; Z83.3 Family history of diabetes mellitus; Z87.891 Personal history of nicotine dependence
CPT/HCPCS: 36415; 80048; 80053; 81001; 82274; 83036; 83605; 85025; 85610; 87086; 97139; 99284; G0378; J1650; J1885

== ENCOUNTER 2023-09-19 15:55 | Emergency (ER) | payer MEDICARE, MEDICAID ==
[2023-09-19] MEDS ORDERED: Ketorolac Tromethamine 30 MG/ML VIAL ONE (20:10)
== END 2023-09-19 21:30 ==
LOC: ERS 15:55
DX: M25.571 Pain in right ankle and joints of right foot (principal); E11.9 Type 2 diabetes mellitus without complications; I11.0 Hypertensive heart disease with heart failure; R50.9 Fever, unspecified; Z87.891 Personal history of nicotine dependence
CPT/HCPCS: 96372; J1885